=== PATIENT | female | born 1975 | race Caucasian/White ===

== ENCOUNTER 2018-08-06 15:48 | Emergency (ER) | payer BC, MEDICAID ==
--- NOTE | 2018-08-06 16:25 | NUR ---
NOTIFIED BY REG THAT PT REQ DC FROM TRIAGE. PAPER SIGNED.
== END 2018-08-06 16:31 | disposition left against medical advice (07) ==
LOC: ED 16:20
DX: M25.561 Pain in right knee (principal); Z53.21 Procedure and treatment not carried out due to patient leaving prior to being seen by health care provider